=== PATIENT | female | born 1970 | race Hispanic/Latino ===

== ENCOUNTER 2022-03-02 15:21 | Inpatient (IN) | payer MEDICAID ==
[~2022-03-02] VITALS: Ht 170.2 cm; Wt 99.1 kg
[2022-03-02] MEDS ORDERED: HYDROCODONE/APAP 7.5MG-325MG 1 EA TAB PO PRN (15:45)
[2022-03-02 15:59] LABS: BASOPHILS # (AUTO) 0.1 (0.0-0.1); BASOPHILS % 0.4 % (0.0-1.0); EOSINOPHILS # (AUTO) 0.1 (0.0-0.4); EOSINOPHILS % 0.6 % (0.0-6.0); HEMATOCRIT 37.1 % (34.2-44.1); HEMOGLOBIN 11.4 g/dL (12.0-16.0); LYMPHOCYTES # (AUTO) 1.4 (1.0-3.2); LYMPHOCYTES % 9.9 % (18.0-39.1); MEAN CORPUSCULAR HEMOGLOBIN 28.8 pg (28-32); MEAN CORPUSCULAR HGB CONC 30.7 g/dL (31-35); MEAN CORPUSCULAR VOLUME 93.7 fL (81-99); MONOCYTES # (AUTO) 0.9 (0.2-0.8); MONOCYTES % 6.3 % (4.4-11.3); NEUTROPHILS # (AUTO) 11.5 (2.1-6.9); NEUTROPHILS % 82.2 % (38.7-80.0); PLATELET COUNT 533 x10e3/uL (140-360); RED BLOOD COUNT 3.96 x10e6/uL (3.6-5.1); RED CELL DISTRIBUTION WIDTH 13.7 % (11.7-14.4)
[2022-03-02 16:27] LABS: ALBUMIN 3.1 g/dL (3.5-5.0); ALBUMIN/GLOBULIN RATIO 0.5 (0.8-2.0); ANION GAP 15.8 mmol/L (8-16); CALCIUM 9.4 mg/dL (8.4-10.2); CREATININE, SERUM 1.07 mg/dL (0.57-1.11); POTASSIUM 3.8 mmol/L (3.5-5.1)
[2022-03-02] MEDS: Vancomycin IV 1 GM in SODIUM CHLORIDE 0.9% 250ML 250 ML IV SCH (16:54)
[2022-03-02] MEDS ORDERED: SODIUM CHLORIDE FLUSH 10 ML SYR INJ PRN (17:00)
[2022-03-02 20:15] VITALS: BP 109/76
[2022-03-02] MEDS: Morphine 4mg INJECTION 4 MG/ML INJ IV PRN (20:15)
[2022-03-02] MEDS: ONDANSETRON HCL INJ 2MG/ML 2ML 2 MG/ML VIAL IV PRN (20:15)
[2022-03-02] MEDS ORDERED: TRADJENTA5 MG PO (21:30)
[2022-03-02] MEDS ORDERED: PRASUGREL HCL10 MG PO (21:30)
[2022-03-02] MEDS ORDERED: NEURONTIN300 MG PO (21:30)
[2022-03-02] MEDS ORDERED: NOVOLOG100 UNIT/1 SC (21:30)
[2022-03-02] MEDS ORDERED: LEVEMIR FL100 UNIT/1 SC (21:30)
[2022-03-02] MEDS ORDERED: LISINOPRIL5 MG PO (21:30)
[2022-03-02] MEDS ORDERED: SPIRONOLACTONE25 MG PO (21:30)
[2022-03-02] MEDS ORDERED: ZETIA10 MG PO (21:30)
[2022-03-02] MEDS ORDERED: JARDIANCE10 MG PO (21:30)
[2022-03-02] MEDS ORDERED: METOPROLOL SUCC50 MG PO (21:30)
[2022-03-02] MEDS ORDERED: NITROGLYCERIN0.4 MG PO (21:30)
[2022-03-02] MEDS ORDERED: ATORVASTATIN CA40 MG PO (21:30)
[2022-03-02] MEDS ORDERED: ISOSORBIDE MONO30 MG PO (21:30)
[2022-03-02] MEDS ORDERED: ASPIRIN81 MG PO (21:30)
[2022-03-02] MEDS ORDERED: FUROSEMIDE20 MG PO (21:30)
[2022-03-02] MEDS ORDERED: NITROGLYCERIN1 EAC3 TD (21:30)
[2022-03-02] MEDS ORDERED: ACETAMINOPHEN 325 MG TAB PO PRN (23:15)
[2022-03-03] VITALS (7 sets, daily range): BP systolic 94–107; BP diastolic 51–64
[2022-03-03] MEDS: Morphine 4mg INJECTION 4 MG/ML INJ IV PRN ×5 (04:00→22:00)
[2022-03-03] MEDS ORDERED: SODIUM CHLORIDE 0.9% 250ML 250 ML ONE (04:19)
[2022-03-03] MEDS: FUROSEMIDE 20 MG TAB PO SCH ×2 (06:20→17:29)
[2022-03-03] MEDS: Vancomycin IV 1 GM in SODIUM CHLORIDE 0.9% 250ML 250 ML IV SCH ×2 (06:20→19:24)
[2022-03-03 06:23] LABS: BASOPHILS # (AUTO) 0.1 (0.0-0.1); BASOPHILS % 0.5 % (0.0-1.0); EOSINOPHILS # (AUTO) 0.2 (0.0-0.4); EOSINOPHILS % 1.8 % (0.0-6.0); HEMATOCRIT 34.2 % (34.2-44.1); HEMOGLOBIN 10.5 g/dL (12.0-16.0); LYMPHOCYTES # (AUTO) 1.7 (1.0-3.2); LYMPHOCYTES % 16.7 % (18.0-39.1); MEAN CORPUSCULAR HGB CONC 30.7 g/dL (31-35); MEAN CORPUSCULAR VOLUME 94.5 fL (81-99); MONOCYTES # (AUTO) 1.1 (0.2-0.8); NEUTROPHILS % 69.7 % (38.7-80.0); PLATELET COUNT 467 x10e3/uL (140-360); RED BLOOD COUNT 3.62 x10e6/uL (3.6-5.1); RED CELL DISTRIBUTION WIDTH 13.5 % (11.7-14.4)
[2022-03-03 06:48] LABS: ANION GAP 13.7 mmol/L (8-16); CALCIUM 8.8 mg/dL (8.4-10.2); CREATININE, SERUM 0.89 mg/dL (0.57-1.11); POTASSIUM 3.7 mmol/L (3.5-5.1)
[2022-03-03 07:17] LABS: CHOL/HDL RATIO 2.8 (3.0-3.6)
[2022-03-03 07:39] LABS: THYROID STIMULATING HORMONE 4.544 uIU/mL (0.350-4.940)
[2022-03-03] MEDS: INSULIN LISPRO 100 UNIT/1 ML 3ML VIAL SQ SCH ×3 (08:00→17:00)
[2022-03-03] MEDS: INSULIN GLARGINE 100 UNITS/ML VIAL SQ SCH (10:00)
[2022-03-03] MEDS: EZETIMIBE 10 MG TAB PO SCH (10:57)
[2022-03-03] MEDS: SENNOSIDES 8.6 MG TAB PO SCH (10:58)
[2022-03-03] MEDS: LISINOPRIL 2.5 MG TAB PO SCH (10:58)
[2022-03-03] MEDS: METOPROLOL SUCCINATE 50 MG TAB XL PO SCH (10:58)
[2022-03-03] MEDS: ISOSORBIDE MONONITRATE 30 MG TAB CR PO SCH (10:59)
[2022-03-03] MEDS: DOCUSATE SODIUM 100 MG CAP PO SCH (10:59)
[2022-03-03] MEDS: EMPAGLIFLOZIN 10 MG TABLET PO SCH (10:59)
[2022-03-03] MEDS: PRASUGREL 10 MG TAB PO SCH (10:59)
[2022-03-03] MEDS: GABAPENTIN 300 MG CAP PO SCH ×3 (10:59→21:30)
[2022-03-03] MEDS: ASPIRIN 81 MG CHEW TAB PO SCH (10:59)
[2022-03-03] MEDS: SPIRONOLACTONE 25 MG TAB PO SCH (11:00)
[2022-03-03] MEDS: ENOXAPARIN SOD INJ 40 MG/0.4 ML SYR SC SCH (17:29)
[2022-03-03] MEDS: ATORVASTATIN 20 MG TAB PO SCH (21:30)
[2022-03-04] VITALS (8 sets, daily range): BP systolic 102–113; BP diastolic 54–83
[2022-03-04] MEDS: INSULIN GLARGINE 100 UNITS/ML VIAL SQ SCH ×3 (02:18→20:26)
[2022-03-04] MEDS: Morphine 4mg INJECTION 4 MG/ML INJ IV PRN ×4 (03:50→22:01)
[2022-03-04] MEDS: HYDROCODONE/APAP 5MG-325MG TAB PO PRN ×2 (06:00→12:00)
[2022-03-04] MEDS: Vancomycin IV 1 GM in SODIUM CHLORIDE 0.9% 250ML 250 ML IV SCH ×2 (06:10→17:50)
[2022-03-04] MEDS: FUROSEMIDE 20 MG TAB PO SCH ×2 (06:10→17:20)
[2022-03-04 07:10] LABS: BASOPHILS # (AUTO) 0.1 (0.0-0.1); BASOPHILS % 0.6 % (0.0-1.0); EOSINOPHILS # (AUTO) 0.2 (0.0-0.4); EOSINOPHILS % 1.5 % (0.0-6.0); HEMATOCRIT 35.9 % (34.2-44.1); LYMPHOCYTES # (AUTO) 1.8 (1.0-3.2); LYMPHOCYTES % 16.6 % (18.0-39.1); MEAN CORPUSCULAR HEMOGLOBIN 28.6 pg (28-32); MEAN CORPUSCULAR HGB CONC 30.6 g/dL (31-35); MEAN CORPUSCULAR VOLUME 93.5 fL (81-99); MONOCYTES # (AUTO) 1.1 (0.2-0.8); MONOCYTES % 9.9 % (4.4-11.3); NEUTROPHILS # (AUTO) 7.8 (2.1-6.9); NEUTROPHILS % 70.9 % (38.7-80.0); PLATELET COUNT 434 x10e3/uL (140-360); RED BLOOD COUNT 3.84 x10e6/uL (3.6-5.1); RED CELL DISTRIBUTION WIDTH 13.2 % (11.7-14.4)
[2022-03-04] MEDS: INSULIN LISPRO 100 UNIT/1 ML 3ML VIAL SQ SCH ×3 (08:00→16:34)
[2022-03-04 08:42] LABS: ALBUMIN 2.4 g/dL (3.5-5.0); ALBUMIN/GLOBULIN RATIO 0.5 (0.8-2.0); ANION GAP 17.8 mmol/L (8-16); CALCIUM 8.5 mg/dL (8.4-10.2); CREATININE, SERUM 0.97 mg/dL (0.57-1.11); POTASSIUM 3.8 mmol/L (3.5-5.1)
[2022-03-04] MEDS: DOCUSATE SODIUM 100 MG CAP PO SCH (09:00)
[2022-03-04] MEDS: SENNOSIDES 8.6 MG TAB PO SCH (09:00)
[2022-03-04 09:01] LABS: FERRITIN 168.7 ng/mL (4.63-204.00)
[2022-03-04] MEDS: ISOSORBIDE MONONITRATE 30 MG TAB CR PO SCH (09:16)
[2022-03-04] MEDS: SPIRONOLACTONE 25 MG TAB PO SCH (09:16)
[2022-03-04] MEDS: PRASUGREL 10 MG TAB PO SCH (09:16)
[2022-03-04] MEDS: EMPAGLIFLOZIN 10 MG TABLET PO SCH (09:16)
[2022-03-04] MEDS: LISINOPRIL 2.5 MG TAB PO SCH (09:16)
[2022-03-04] MEDS: ASPIRIN 81 MG CHEW TAB PO SCH (09:16)
[2022-03-04] MEDS: GABAPENTIN 300 MG CAP PO SCH ×3 (09:16→20:25)
[2022-03-04] MEDS: EZETIMIBE 10 MG TAB PO SCH (09:17)
[2022-03-04] MEDS: METOPROLOL SUCCINATE 50 MG TAB XL PO SCH (09:17)
[2022-03-04] MEDS ORDERED: SODIUM CHLORIDE 0.9% 100 ML ONE (11:12)
[2022-03-04] MEDS ORDERED: IOPAMIDOL 370 MG/ML 100 ML INFUS..BTL INJ ONE (11:12)
[2022-03-04] MEDS: ONDANSETRON HCL INJ 2MG/ML 2ML 2 MG/ML VIAL IV PRN (14:15)
[2022-03-04] MEDS: ENOXAPARIN SOD INJ 40 MG/0.4 ML SYR SC SCH (17:20)
[2022-03-04] MEDS: ATORVASTATIN 20 MG TAB PO SCH (20:25)
[2022-03-05] VITALS (8 sets, daily range): BP systolic 100–117; BP diastolic 58–86
[2022-03-05] MEDS: Morphine 4mg INJECTION 4 MG/ML INJ IV PRN ×2 (04:29→09:20)
[2022-03-05] MEDS: Vancomycin IV 1 GM in SODIUM CHLORIDE 0.9% 250ML 250 ML IV SCH ×2 (05:09→18:00)
[2022-03-05] MEDS: FUROSEMIDE 20 MG TAB PO SCH ×2 (05:10→18:00)
[2022-03-05] MEDS ORDERED: BUPIVACAINE HC 0.75% PF 10ML VIAL INJ ONE (07:24)
[2022-03-05] MEDS ORDERED: LIDOCAINE HCL 1% LOCAL INJ 20 ML VIAL ONE (07:24)
[2022-03-05] MEDS: INSULIN LISPRO 100 UNIT/1 ML 3ML VIAL SQ SCH ×3 (07:58→17:00)
[2022-03-05] MEDS: INSULIN GLARGINE 100 UNITS/ML VIAL SQ SCH ×2 (09:00→21:00)
[2022-03-05] MEDS: SPIRONOLACTONE 25 MG TAB PO SCH (09:17)
[2022-03-05] MEDS: GABAPENTIN 300 MG CAP PO SCH ×3 (09:18→21:01)
[2022-03-05] MEDS: EMPAGLIFLOZIN 10 MG TABLET PO SCH (09:18)
[2022-03-05] MEDS: LISINOPRIL 2.5 MG TAB PO SCH (09:18)
[2022-03-05] MEDS: ISOSORBIDE MONONITRATE 30 MG TAB CR PO SCH (09:18)
[2022-03-05] MEDS: PRASUGREL 10 MG TAB PO SCH (09:18)
[2022-03-05] MEDS: DOCUSATE SODIUM 100 MG CAP PO SCH (09:18)
[2022-03-05] MEDS: ASPIRIN 81 MG CHEW TAB PO SCH (09:18)
[2022-03-05] MEDS: SENNOSIDES 8.6 MG TAB PO SCH (09:19)
[2022-03-05] MEDS: EZETIMIBE 10 MG TAB PO SCH (09:19)
[2022-03-05] MEDS: METOPROLOL SUCCINATE 50 MG TAB XL PO SCH (09:19)
[2022-03-05] MEDS: ONDANSETRON HCL INJ 2MG/ML 2ML 2 MG/ML VIAL IV PRN (09:20)
[2022-03-05 10:06] LABS: BASOPHILS # (AUTO) 0.1 (0.0-0.1); BASOPHILS % 0.6 % (0.0-1.0); EOSINOPHILS # (AUTO) 0.1 (0.0-0.4); EOSINOPHILS % 0.5 % (0.0-6.0); HEMATOCRIT 32.5 % (34.2-44.1); HEMOGLOBIN 10.1 g/dL (12.0-16.0); LYMPHOCYTES # (AUTO) 1.5 (1.0-3.2); LYMPHOCYTES % 11.5 % (18.0-39.1); MEAN CORPUSCULAR HEMOGLOBIN 28.9 pg (28-32); MEAN CORPUSCULAR HGB CONC 31.1 g/dL (31-35); MEAN CORPUSCULAR VOLUME 93.1 fL (81-99); MONOCYTES # (AUTO) 0.9 (0.2-0.8); MONOCYTES % 6.7 % (4.4-11.3); NEUTROPHILS # (AUTO) 10.3 (2.1-6.9); NEUTROPHILS % 79.9 % (38.7-80.0); PLATELET COUNT 440 x10e3/uL (140-360); RED BLOOD COUNT 3.49 x10e6/uL (3.6-5.1); RED CELL DISTRIBUTION WIDTH 13.2 % (11.7-14.4)
[2022-03-05 10:34] LABS: ANION GAP 15.1 mmol/L (8-16); CALCIUM 8.6 mg/dL (8.4-10.2); CREATININE, SERUM 0.87 mg/dL (0.57-1.11); MAGNESIUM 2.3 MG/DL (1.3-2.1); POTASSIUM 4.1 mmol/L (3.5-5.1)
[2022-03-05] MEDS ORDERED: HYDROMORPHONE 1MG/1ML INJ IV PRN (12:15)
[2022-03-05] MEDS ORDERED: SEVOFLURANE INHAL SOLN 250 ML PEN BTL ONE (12:20)
[2022-03-05] MEDS ORDERED: POVIDONE IODINE 0.05% 0.05 % ML PO ONE (12:20)
[2022-03-05] MEDS ORDERED: PROPOFOL IV EMULSION 10 MG/ML 20 ML VIAL ONE (12:20)
[2022-03-05] MEDS ORDERED: LIDOCAINE HCL 2% LOCAL INJ 5 ML SDV VIAL INJ ONE (12:20)
[2022-03-05] MEDS ORDERED: MIDAZOLAM HCL 2 MG/2 ML VIAL ONE (12:46)
[2022-03-05] MEDS: HYDROCODONE/APAP 5MG-325MG TAB PO PRN (14:42)
[2022-03-05] MEDS: HYDROMORPHONE 1MG/1ML INJ IV PRN ×2 (15:20→21:02)
[2022-03-05] MEDS: ENOXAPARIN SOD INJ 40 MG/0.4 ML SYR SC SCH (16:30)
[2022-03-05] MEDS: ATORVASTATIN 20 MG TAB PO SCH (21:01)
[2022-03-06] VITALS (9 sets, daily range): BP systolic 93–118; BP diastolic 53–72
[2022-03-06] MEDS: HYDROMORPHONE 1MG/1ML INJ IV PRN ×5 (02:55→20:53)
[2022-03-06] MEDS: FUROSEMIDE 20 MG TAB PO SCH ×2 (05:32→17:29)
[2022-03-06] MEDS: Vancomycin IV 1 GM in SODIUM CHLORIDE 0.9% 250ML 250 ML IV SCH ×2 (05:32→17:24)
[2022-03-06 07:10] LABS: BASOPHILS # (AUTO) 0.1 (0.0-0.1); BASOPHILS % 0.6 % (0.0-1.0); EOSINOPHILS # (AUTO) 0.2 (0.0-0.4); EOSINOPHILS % 1.5 % (0.0-6.0); HEMATOCRIT 33.6 % (34.2-44.1); HEMOGLOBIN 10.3 g/dL (12.0-16.0); LYMPHOCYTES # (AUTO) 1.5 (1.0-3.2); LYMPHOCYTES % 12.7 % (18.0-39.1); MEAN CORPUSCULAR HEMOGLOBIN 28.5 pg (28-32); MEAN CORPUSCULAR HGB CONC 30.7 g/dL (31-35); MEAN CORPUSCULAR VOLUME 93.1 fL (81-99); MONOCYTES % 8.4 % (4.4-11.3); NEUTROPHILS # (AUTO) 9.2 (2.1-6.9); NEUTROPHILS % 76.2 % (38.7-80.0); PLATELET COUNT 487 x10e3/uL (140-360); RED BLOOD COUNT 3.61 x10e6/uL (3.6-5.1)
[2022-03-06 07:39] LABS: ALBUMIN 2.5 g/dL (3.5-5.0); ALBUMIN/GLOBULIN RATIO 0.5 (0.8-2.0); ANION GAP 16.5 mmol/L (8-16); CREATININE, SERUM 0.84 mg/dL (0.57-1.11); MAGNESIUM 2.2 MG/DL (1.3-2.1); POTASSIUM 4.5 mmol/L (3.5-5.1)
[2022-03-06] MEDS: INSULIN LISPRO 100 UNIT/1 ML 3ML VIAL SQ SCH ×3 (08:00→17:00)
[2022-03-06] MEDS: HYDROCODONE/APAP 5MG-325MG TAB PO PRN ×2 (08:47→22:50)
[2022-03-06] MEDS: INSULIN GLARGINE 100 UNITS/ML VIAL SQ SCH ×2 (09:00→20:20)
[2022-03-06] MEDS: PRASUGREL 10 MG TAB PO SCH (09:42)
[2022-03-06] MEDS: SPIRONOLACTONE 25 MG TAB PO SCH (09:42)
[2022-03-06] MEDS: DOCUSATE SODIUM 100 MG CAP PO SCH (09:42)
[2022-03-06] MEDS: ASPIRIN 81 MG CHEW TAB PO SCH (09:42)
[2022-03-06] MEDS: SENNOSIDES 8.6 MG TAB PO SCH (09:45)
[2022-03-06] MEDS: LISINOPRIL 2.5 MG TAB PO SCH (09:45)
[2022-03-06] MEDS: GABAPENTIN 300 MG CAP PO SCH ×3 (09:45→20:51)
[2022-03-06] MEDS: ISOSORBIDE MONONITRATE 30 MG TAB CR PO SCH (09:45)
[2022-03-06] MEDS: METOPROLOL SUCCINATE 50 MG TAB XL PO SCH (09:45)
[2022-03-06] MEDS: EZETIMIBE 10 MG TAB PO SCH (09:45)
[2022-03-06] MEDS: EMPAGLIFLOZIN 10 MG TABLET PO SCH (09:45)
[2022-03-06] MEDS: ENOXAPARIN SOD INJ 40 MG/0.4 ML SYR SC SCH (16:30)
[2022-03-06] MEDS: ATORVASTATIN 20 MG TAB PO SCH (20:51)
[2022-03-07] VITALS (8 sets, daily range): BP systolic 94–117; BP diastolic 61–71
[2022-03-07] MEDS: HYDROMORPHONE 1MG/1ML INJ IV PRN ×6 (04:15→21:20)
[2022-03-07] MEDS: Vancomycin IV 1 GM in SODIUM CHLORIDE 0.9% 250ML 250 ML IV SCH ×2 (05:11→16:22)
[2022-03-07] MEDS: FUROSEMIDE 20 MG TAB PO SCH ×2 (06:14→17:22)
[2022-03-07 07:00] LABS: BASOPHILS # (AUTO) 0.1 (0.0-0.1); BASOPHILS % 0.7 % (0.0-1.0); EOSINOPHILS # (AUTO) 0.2 (0.0-0.4); EOSINOPHILS % 1.9 % (0.0-6.0); HEMATOCRIT 36.3 % (34.2-44.1); HEMOGLOBIN 11.1 g/dL (12.0-16.0); LYMPHOCYTES # (AUTO) 1.7 (1.0-3.2); LYMPHOCYTES % 17.2 % (18.0-39.1); MEAN CORPUSCULAR HEMOGLOBIN 28.5 pg (28-32); MEAN CORPUSCULAR HGB CONC 30.6 g/dL (31-35); MEAN CORPUSCULAR VOLUME 93.1 fL (81-99); MONOCYTES % 9.5 % (4.4-11.3); NEUTROPHILS # (AUTO) 7.1 (2.1-6.9); NEUTROPHILS % 70.2 % (38.7-80.0); PLATELET COUNT 474 x10e3/uL (140-360); RED CELL DISTRIBUTION WIDTH 13.1 % (11.7-14.4)
[2022-03-07 07:24] LABS: CALCIUM 9.1 mg/dL (8.4-10.2); CREATININE, SERUM 0.77 mg/dL (0.57-1.11); MAGNESIUM 2.4 MG/DL (1.3-2.1)
[2022-03-07] MEDS: INSULIN LISPRO 100 UNIT/1 ML 3ML VIAL SQ SCH ×3 (08:00→16:43)
[2022-03-07] MEDS: LISINOPRIL 2.5 MG TAB PO SCH (09:00)
[2022-03-07] MEDS: SPIRONOLACTONE 25 MG TAB PO SCH (09:23)
[2022-03-07] MEDS: EMPAGLIFLOZIN 10 MG TABLET PO SCH (09:24)
[2022-03-07] MEDS: PRASUGREL 10 MG TAB PO SCH (09:24)
[2022-03-07] MEDS: ISOSORBIDE MONONITRATE 30 MG TAB CR PO SCH (09:24)
[2022-03-07] MEDS: ASPIRIN 81 MG CHEW TAB PO SCH (09:24)
[2022-03-07] MEDS: DOCUSATE SODIUM 100 MG CAP PO SCH (09:24)
[2022-03-07] MEDS: GABAPENTIN 300 MG CAP PO SCH ×3 (09:24→21:40)
[2022-03-07] MEDS: SENNOSIDES 8.6 MG TAB PO SCH (09:25)
[2022-03-07] MEDS: METOPROLOL SUCCINATE 50 MG TAB XL PO SCH (09:25)
[2022-03-07] MEDS: EZETIMIBE 10 MG TAB PO SCH (09:25)
[2022-03-07] MEDS: HYDROCODONE/APAP 5MG-325MG TAB PO PRN (09:28)
[2022-03-07] MEDS: INSULIN GLARGINE 100 UNITS/ML VIAL SQ SCH ×2 (09:44→21:00)
[2022-03-07] MEDS: ENOXAPARIN SOD INJ 40 MG/0.4 ML SYR SC SCH (17:22)
[2022-03-07] MEDS: ATORVASTATIN 20 MG TAB PO SCH (21:40)
[2022-03-08] VITALS (8 sets, daily range): BP systolic 105–118; BP diastolic 64–72
[2022-03-08] MEDS: HYDROMORPHONE 1MG/1ML INJ IV PRN ×7 (00:30→20:53)
[2022-03-08] MEDS: FUROSEMIDE 20 MG TAB PO SCH ×2 (05:03→17:51)
[2022-03-08] MEDS: Vancomycin IV 1 GM in SODIUM CHLORIDE 0.9% 250ML 250 ML IV SCH ×2 (05:03→17:43)
[2022-03-08 06:49] LABS: BASOPHILS # (AUTO) 0.1 (0.0-0.1); BASOPHILS % 0.4 % (0.0-1.0); EOSINOPHILS # (AUTO) 0.2 (0.0-0.4); EOSINOPHILS % 1.4 % (0.0-6.0); HEMATOCRIT 31.1 % (34.2-44.1); HEMOGLOBIN 9.8 g/dL (12.0-16.0); LYMPHOCYTES # (AUTO) 1.3 (1.0-3.2); LYMPHOCYTES % 9.4 % (18.0-39.1); MEAN CORPUSCULAR HEMOGLOBIN 28.8 pg (28-32); MEAN CORPUSCULAR HGB CONC 31.5 g/dL (31-35); MEAN CORPUSCULAR VOLUME 91.5 fL (81-99); MONOCYTES % 7.3 % (4.4-11.3); NEUTROPHILS # (AUTO) 10.9 (2.1-6.9); NEUTROPHILS % 80.7 % (38.7-80.0); PLATELET COUNT 478 x10e3/uL (140-360)
[2022-03-08 07:23] LABS: ALBUMIN 2.3 g/dL (3.5-5.0); ALBUMIN/GLOBULIN RATIO 0.5 (0.8-2.0); ANION GAP 13.9 mmol/L (8-16); CALCIUM 8.5 mg/dL (8.4-10.2); CREATININE, SERUM 0.75 mg/dL (0.57-1.11); MAGNESIUM 1.9 MG/DL (1.3-2.1); POTASSIUM 3.9 mmol/L (3.5-5.1)
[2022-03-08] MEDS: INSULIN LISPRO 100 UNIT/1 ML 3ML VIAL SQ SCH ×3 (08:00→17:00)
[2022-03-08] MEDS: SPIRONOLACTONE 25 MG TAB PO SCH (08:47)
[2022-03-08] MEDS: GABAPENTIN 300 MG CAP PO SCH ×3 (08:48→20:51)
[2022-03-08] MEDS: DOCUSATE SODIUM 100 MG CAP PO SCH (08:48)
[2022-03-08] MEDS: SENNOSIDES 8.6 MG TAB PO SCH (08:48)
[2022-03-08] MEDS: PRASUGREL 10 MG TAB PO SCH (08:48)
[2022-03-08] MEDS: EMPAGLIFLOZIN 10 MG TABLET PO SCH (08:48)
[2022-03-08] MEDS: ISOSORBIDE MONONITRATE 30 MG TAB CR PO SCH (08:48)
[2022-03-08] MEDS: ASPIRIN 81 MG CHEW TAB PO SCH (08:48)
[2022-03-08] MEDS: EZETIMIBE 10 MG TAB PO SCH (08:49)
[2022-03-08] MEDS: INSULIN GLARGINE 100 UNITS/ML VIAL SQ SCH ×2 (08:49→20:54)
[2022-03-08] MEDS: METOPROLOL SUCCINATE 50 MG TAB XL PO SCH ×2 (08:49→09:00)
[2022-03-08] MEDS: HYDROCODONE/APAP 5MG-325MG TAB PO PRN ×2 (08:59→19:53)
[2022-03-08] MEDS: LISINOPRIL 2.5 MG TAB PO SCH (09:00)
[2022-03-08] MEDS ORDERED: MIDAZOLAM HCL 2 MG/2 ML VIAL ONE (11:52)
[2022-03-08] MEDS ORDERED: HEPARIN SOD (PORCINE) 1000 UNIT/ML 30ML ONE (11:52)
[2022-03-08] MEDS ORDERED: FENTANYL CITRATE/PF 100MCG/2 ML INJ ONE (11:52)
[2022-03-08] MEDS ORDERED: LIDOCAINE HCL 1% LOCAL INJ 20 ML VIAL ONE (11:53)
[2022-03-08] MEDS ORDERED: SODIUM CHLORIDE 0.9% 1000ML 0 ML ONE (11:53)
[2022-03-08] MEDS ORDERED: HEPARIN SOD/SOD CHLORIDE 2,000 ML ONE (11:53)
[2022-03-08] MEDS ORDERED: IOPAMIDOL 300MG/ML 100 ML INFUS..BTL IV ONE (11:53)
[2022-03-08] MEDS ORDERED: NITROGLYCERIN/D5W 200 MCG/ML 250 ML ONE (11:53)
[2022-03-08] MEDS ORDERED: SODIUM CHLORIDE 0.9% 1000ML 1,000 ML ONE (12:01)
[2022-03-08] MEDS ORDERED: VERAPAMIL HCL 2.5 MG/ML 2 ML VIAL ONE (12:01)
[2022-03-08] MEDS ORDERED: PROTAMINE SULFATE 10 MG/ML 5 ML VIAL ONE (13:05)
[2022-03-08] MEDS: ATORVASTATIN 20 MG TAB PO SCH (20:50)
[2022-03-09] VITALS (7 sets, daily range): BP systolic 96–130; BP diastolic 57–71
[2022-03-09] MEDS: HYDROMORPHONE 1MG/1ML INJ IV PRN ×6 (00:03→18:04)
[2022-03-09] MEDS: HYDROCODONE/APAP 5MG-325MG TAB PO PRN ×2 (05:23→16:33)
[2022-03-09] MEDS: FUROSEMIDE 20 MG TAB PO SCH ×2 (05:39→18:39)
[2022-03-09 06:12] LABS: BASOPHILS # (AUTO) 0.1 (0.0-0.1); BASOPHILS % 0.4 % (0.0-1.0); EOSINOPHILS # (AUTO) 0.2 (0.0-0.4); EOSINOPHILS % 1.4 % (0.0-6.0); HEMATOCRIT 31.2 % (34.2-44.1); HEMOGLOBIN 9.8 g/dL (12.0-16.0); LYMPHOCYTES # (AUTO) 1.1 (1.0-3.2); LYMPHOCYTES % 7.7 % (18.0-39.1); MEAN CORPUSCULAR HEMOGLOBIN 28.7 pg (28-32); MEAN CORPUSCULAR HGB CONC 31.4 g/dL (31-35); MEAN CORPUSCULAR VOLUME 91.5 fL (81-99); MONOCYTES % 6.9 % (4.4-11.3); NEUTROPHILS # (AUTO) 11.6 (2.1-6.9); NEUTROPHILS % 83.1 % (38.7-80.0); PLATELET COUNT 476 x10e3/uL (140-360); RED BLOOD COUNT 3.41 x10e6/uL (3.6-5.1); RED CELL DISTRIBUTION WIDTH 13.1 % (11.7-14.4)
[2022-03-09 06:41] LABS: ALBUMIN 2.3 g/dL (3.5-5.0); ALBUMIN/GLOBULIN RATIO 0.4 (0.8-2.0); ANION GAP 17.8 mmol/L (8-16); CALCIUM 8.7 mg/dL (8.4-10.2); CREATININE, SERUM 0.71 mg/dL (0.57-1.11); MAGNESIUM 1.7 MG/DL (1.3-2.1); POTASSIUM 3.8 mmol/L (3.5-5.1)
[2022-03-09] MEDS: Vancomycin IV 1 GM in SODIUM CHLORIDE 0.9% 250ML 250 ML IV SCH ×2 (06:47→18:39)
[2022-03-09] MEDS: INSULIN LISPRO 100 UNIT/1 ML 3ML VIAL SQ SCH ×3 (08:40→17:00)
[2022-03-09] MEDS: INSULIN GLARGINE 100 UNITS/ML VIAL SQ SCH ×2 (08:41→21:00)
[2022-03-09] MEDS: EMPAGLIFLOZIN 10 MG TABLET PO SCH (09:11)
[2022-03-09] MEDS: DOCUSATE SODIUM 100 MG CAP PO SCH (09:12)
[2022-03-09] MEDS: ASPIRIN 81 MG CHEW TAB PO SCH (09:12)
[2022-03-09] MEDS: SPIRONOLACTONE 25 MG TAB PO SCH (09:12)
[2022-03-09] MEDS: EZETIMIBE 10 MG TAB PO SCH (09:13)
[2022-03-09] MEDS: ISOSORBIDE MONONITRATE 30 MG TAB CR PO SCH (09:13)
[2022-03-09] MEDS: SENNOSIDES 8.6 MG TAB PO SCH (09:14)
[2022-03-09] MEDS: METOPROLOL SUCCINATE 50 MG TAB XL PO SCH (09:14)
[2022-03-09] MEDS: GABAPENTIN 300 MG CAP PO SCH ×3 (09:15→21:00)
[2022-03-09] MEDS: LISINOPRIL 2.5 MG TAB PO SCH (09:15)
[2022-03-09] MEDS ORDERED: ONDANSETRON HCL 4 MG ORAL DISINTEGRATING TAB PO PRN (10:00)
[2022-03-09] MEDS ORDERED: GABAPENTIN300 MG PO (16:40)
[2022-03-09] MEDS ORDERED: SENOKOT8.6 MG PO (16:40)
[2022-03-09] MEDS ORDERED: CIPROFLOXACIN750 MG PO (16:40)
[2022-03-09] MEDS ORDERED: HYDROCODON-ACE1 EA12 PO (16:40)
[2022-03-09] MEDS ORDERED: DOXYCYCLINE HY100 M3 PO (16:40)
[2022-03-09] MEDS: ATORVASTATIN 20 MG TAB PO SCH (21:00)
[2022-03-09] MEDS ORDERED: HYDROCODONE/APAP 7.5MG-325MG 1 EA TAB PO PRN (21:15)
== END 2022-03-09 22:16 | disposition home or self-care (01) | DRG 854 ==
LOC: ER 15:28 → ERHOLD 16:57 → MED/SURG2 20:56
PROVIDERS: ADMIT Internal Medicine; ATTEND Internal Medicine
PROC: 0Y6P0Z0 Detachment at Right 1st Toe, Complete, Open Approach (ICD-10-PCS; principal; 2022-03-05 07:16)
PROC: 047R3Z1 Dilation of Right Posterior Tibial Artery using Drug-Coated Balloon, Percutaneous Approach (ICD-10-PCS; 2022-03-08)
PROC: B41F1ZZ Fluoroscopy of Right Lower Extremity Arteries using Low Osmolar Contrast (ICD-10-PCS; 2022-03-08)
DX: A41.9 Sepsis, unspecified organism (principal); E11.52 Type 2 diabetes mellitus with diabetic peripheral angiopathy with gangrene; I96 Gangrene, not elsewhere classified; I50.22 Chronic systolic (congestive) heart failure; I11.0 Hypertensive heart disease with heart failure; E11.42 Type 2 diabetes mellitus with diabetic polyneuropathy; E78.5 Hyperlipidemia, unspecified; E66.9 Obesity, unspecified; I25.10 Atherosclerotic heart disease of native coronary artery without angina pectoris; D50.0 Iron deficiency anemia secondary to blood loss (chronic); D75.838 Other thrombocytosis; Z68.34 Body mass index [BMI] 34.0-34.9, adult; Z79.4 Long term (current) use of insulin; Z72.0 Tobacco use; Z88.8 Allergy status to other drugs, medicaments and biological substances; Z95.5 Presence of coronary angioplasty implant and graft
CPT/HCPCS: 36247; 36415; 37228; 75635; 75710; 76937; 80048; 80053; 80061; 80202; 82607; 82728; 82746; 82948; 83036; 83540; 83735; 84443; 84466; 85025; 87040; 88304; 88305; 88311; 93926; 94799; 97139; 99152; 99153; 99251; 99283; C1725; C1769; C1887; C1894; J0692; J1170; J1644; J1650; J1815; J2001; J2250; J2270; J2405; J2720; J3010; J3370; J7030; J7050; Q9967

== ENCOUNTER 2023-02-08 22:11 | Emergency (ER) | payer MEDICARE, OTHER ==
[~2023-02-08] VITALS: Ht 170.2 cm; Wt 77.1 kg
[~2023-02-08 22:11] MED LIST: ASPIRIN81 MG PO; ATORVASTATIN CA40 MG PO; CIPROFLOXACIN750 MG PO; DOXYCYCLINE HY100 M3 PO; FUROSEMIDE20 MG PO; GABAPENTIN300 MG PO; HYDROCODON-ACE1 EA12 PO; ISOSORBIDE MONO30 MG PO; JARDIANCE10 MG PO; LEVEMIR FL100 UNIT/1 SC; LISINOPRIL5 MG PO; METOPROLOL SUCC50 MG PO; NEURONTIN300 MG PO; NITROGLYCERIN0.4 MG PO; NITROGLYCERIN1 EAC3 TD; NOVOLOG100 UNIT/1 SC; PRASUGREL HCL10 MG PO; SENOKOT8.6 MG PO; SPIRONOLACTONE25 MG PO; TRADJENTA5 MG PO; ZETIA10 MG PO
[2023-02-08 22:19] VITALS: O2SAT 100
[2023-02-08] MEDS ORDERED: KETOROLAC TROMETHAMINE 30 MG/ML VIAL IV STA (23:06)
[2023-02-08 23:09] LABS: BASOPHILS # (AUTO) 0.1 (0.0-0.1); BASOPHILS % 0.9 % (0.0-1.0); EOSINOPHILS # (AUTO) 0.3 (0.0-0.4); EOSINOPHILS % 4.3 % (0.0-6.0); HEMATOCRIT 38.1 % (34.2-44.1); HEMOGLOBIN 11.7 g/dL (12.0-16.0); LYMPHOCYTES # (AUTO) 1.5 (1.0-3.2); LYMPHOCYTES % 26.6 % (18.0-39.1); MEAN CORPUSCULAR HEMOGLOBIN 27.3 pg (28-32); MEAN CORPUSCULAR HGB CONC 30.7 g/dL (31-35); MEAN CORPUSCULAR VOLUME 88.8 fL (81-99); MONOCYTES # (AUTO) 0.5 (0.2-0.8); MONOCYTES % 8.9 % (4.4-11.3); NEUTROPHILS # (AUTO) 3.4 (2.1-6.9); PLATELET COUNT 219 x10e3/uL (140-360); RED BLOOD COUNT 4.29 x10e6/uL (3.6-5.1)
[2023-02-08 23:23] LABS: ALBUMIN 3.3 g/dL (3.5-5.0); ALBUMIN/GLOBULIN RATIO 0.8 (0.8-2.0); CALCIUM 9.4 mg/dL (8.4-10.2); CREATININE, SERUM 0.79 mg/dL (0.57-1.11)
[2023-02-08] MEDS ORDERED: IOPAMIDOL 370 MG/ML 100 ML INFUS..BTL INJ ONE (23:55)
[2023-02-08] MEDS ORDERED: ONDANSETRON HCL INJ 2MG/ML 2ML 2 MG/ML VIAL ONE (23:59)
[2023-02-09] MEDS ORDERED: ONDANSETRON HCL INJ 2MG/ML 2ML 2 MG/ML VIAL IV STA (00:04)
[2023-02-09] MEDS ORDERED: Morphine 4mg INJECTION 4 MG/ML INJ IV STA (01:14)
[2023-02-09] MEDS ORDERED: Morphine 4mg INJECTION 4 MG/ML INJ ONE (01:22)
[2023-02-09 01:54] LABS: CLARITY,URINE CLOUDY (CLEAR); COLOR,URINE STRAW (YELLOW); KETONES,URINE TRACE (NEGATIVE); LEUKOCYTE ESTERASE ,URINE TRACE (NEGATIVE); NITRITE,URINE NEGATIVE (NEGATIVE); PROTEIN,URINE DIPSTICK >=300 (NEGATIVE); URINE UROBILINOGEN 0.2 mg/dL (0.2 - 1)
[2023-02-09 01:58] LABS: BACTERIA,URINE MANY /HPF; EPITHELIAL CELLS,URINE FEW /LPF; MUCUS,URINE FEW (RARE); RBC,URINE >50 /HPF (0-5); WBC,URINE (MAN) 21-50 /HPF (0-5)
[2023-02-10] MEDS ORDERED: DIFLUCAN100 MG PO (23:24)
== END 2023-02-09 01:19 | disposition home or self-care (01) ==
LOC: ER 22:28
DX: Z46.6 Encounter for fitting and adjustment of urinary device (principal); R10.30 Lower abdominal pain, unspecified; E11.65 Type 2 diabetes mellitus with hyperglycemia; I10 Essential (primary) hypertension; I50.9 Heart failure, unspecified; I25.10 Atherosclerotic heart disease of native coronary artery without angina pectoris; I25.2 Old myocardial infarction; Z95.5 Presence of coronary angioplasty implant and graft
CPT/HCPCS: 36415; 74177; 80053; 81001; 83690; 85025; 87086; 99284; J1885; J2270; J2405; Q9967; 51700

== ENCOUNTER 2023-02-10 21:56 | Emergency (ER) | payer OTHER ==
[~2023-02-10] VITALS: Ht 170.2 cm; Wt 77.1 kg
[2023-02-10 22:02] VITALS: O2SAT 100
[2023-02-10 22:19] LABS: BASOPHILS # (AUTO) 0.1 (0.0-0.1); BASOPHILS % 1.3 % (0.0-1.0); EOSINOPHILS # (AUTO) 0.1 (0.0-0.4); EOSINOPHILS % 3.1 % (0.0-6.0); HEMATOCRIT 39.8 % (34.2-44.1); HEMOGLOBIN 12.3 g/dL (12.0-16.0); LYMPHOCYTES # (AUTO) 1.2 (1.0-3.2); LYMPHOCYTES % 27.8 % (18.0-39.1); MEAN CORPUSCULAR HEMOGLOBIN 26.9 pg (28-32); MEAN CORPUSCULAR HGB CONC 30.9 g/dL (31-35); MEAN CORPUSCULAR VOLUME 86.9 fL (81-99); MONOCYTES # (AUTO) 0.4 (0.2-0.8); MONOCYTES % 8.1 % (4.4-11.3); NEUTROPHILS # (AUTO) 2.7 (2.1-6.9); NEUTROPHILS % 59.5 % (38.7-80.0); PLATELET COUNT 243 x10e3/uL (140-360); RED BLOOD COUNT 4.58 x10e6/uL (3.6-5.1); RED CELL DISTRIBUTION WIDTH 23.8 % (11.7-14.4)
[2023-02-10 22:37] LABS: ALBUMIN 3.5 g/dL (3.5-5.0); ALBUMIN/GLOBULIN RATIO 0.8 (0.8-2.0); ANION GAP 15.4 mmol/L (8-16); CALCIUM 9.4 mg/dL (8.4-10.2); CREATININE, SERUM 1.07 mg/dL (0.57-1.11); POTASSIUM 4.4 mmol/L (3.5-5.1)
[2023-02-10] MEDS ORDERED: KETOROLAC TROMETHAMINE 30 MG/ML VIAL IV STA (23:13)
[2023-02-10] MEDS ORDERED: KETOROLAC TROMETHAMINE 30 MG/ML VIAL ONE (23:14)
[2023-02-10] MEDS ORDERED: DIFLUCAN100 MG PO (23:24)
== END 2023-02-10 23:47 | disposition home or self-care (01) ==
LOC: ER 22:00
DX: T83.84XA Pain due to genitourinary prosthetic devices, implants and grafts, initial encounter (principal); R10.2 Pelvic and perineal pain; B37.49 Other urogenital candidiasis; I11.0 Hypertensive heart disease with heart failure; I50.9 Heart failure, unspecified; Z96.0 Presence of urogenital implants; E78.5 Hyperlipidemia, unspecified; I25.10 Atherosclerotic heart disease of native coronary artery without angina pectoris; Z95.5 Presence of coronary angioplasty implant and graft; I25.2 Old myocardial infarction; E11.40 Type 2 diabetes mellitus with diabetic neuropathy, unspecified; Z79.4 Long term (current) use of insulin; Z79.899 Other long term (current) drug therapy; Z95.810 Presence of automatic (implantable) cardiac defibrillator; Y84.6 Urinary catheterization as the cause of abnormal reaction of the patient, or of later complication, without mention of misadventure at the time of the procedure; Y92.009 Unspecified place in unspecified non-institutional (private) residence as the place of occurrence of the external cause
CPT/HCPCS: 36415; 80053; 83690; 85025; 99283; J1885